=== PATIENT | female | born 1935 | race Caucasian/White ===

== ENCOUNTER → 2024-11-02 09:56 | Outpatient (REF) | payer MEDICARE, SELFPAY | LOC: HWRCS 09:56 | PROVIDERS: ATTENDING PHYSICIAN Internal Medicine Cardiovascular Disease | DX: I34.0 Nonrheumatic mitral (valve) insufficiency (principal); I35.8 Other nonrheumatic aortic valve disorders; I48.0 Paroxysmal atrial fibrillation | CPT/HCPCS: 93306 ==

== ENCOUNTER 2025-01-02 19:08 | Emergency (ER) | payer MEDICARE, SELFPAY ==
[2025-01-02 19:13] VITALS: BP 127/75
--- NOTE | 2025-01-02 19:58 | ED.GENMED ---
History of Present Illness
<Aramis Sanders DO - Last Filed: 01/02/25 20:00>
General
Chief Complaint: Nose Bleed
Source: patient and spouse
Exam Limitations: none
Time Seen by Provider: 01/02/25 19:49
History of Present Illness
History of Present Illness:
89 female A-fib Eliquis 2.5 twice daily, no prior TIA or CVA sneezed at 4 PM sided nosebleed from the left side since then no other systemic bleeding no rash, no prior episode of nosebleed
Past History
<Aramis Sanders DO - Last Filed: 01/02/25 20:00>
Past History
ED Past Medical History: Arrthythmia and Hypercholesterolemia
ED Past Surgical History: None
Social History
Tobacco: Non-smoker
Alcohol: None
Drug: None
Personal:
Living: with family
Employment: Retired
Review of Systems
<Aramis Sanders DO - Last Filed: 01/02/25 20:00>
Review of Systems
All Other Systems: Not applicable
EENT: Reports other (Nosebleed)
Respiratory: Denies hemoptysis
ABD/GI: Denies bloody stools
: Denies bleeding
Phy Exam
<Aramis Sanders DO - Last Filed: 01/02/25 20:00>
Physical Exam
Physical Exam:
Physical Exam
General: no apparent distress, not acutely ill
Neck: Oozing left medial nare
Lungs: no acute respiratory distress.
Neuro: alert and oriented. no focal neurological deficits
Skin: no rash
Psychiatric: well kept. interactive and cooperative
Extremities: no edema
Course
<Aramis Sanders DO - Last Filed: 01/02/25 20:00>
Orders/Labs/Results
Orders:
Orders
01/02/25 19:32
Complete Blood Count/With Diff Urgent
Abnormal Lab Results
01/02/25
19:32
RBC 4.19 L 10^6/uL
(4.20-5.40)
Hct 36.8 L %
(37.0-47.0)
Monocytes % 11.0 H %
(1.7-9.3)
01/02/25 19:32
Vital Signs
Initial and Last Documented VS:
Initial Vital Signs
Temp Pulse Resp BP Pulse Ox
98.8 F 81 18 127/75 98
01/02/25 19:13 01/02/25 19:13 01/02/25 19:13 01/02/25 19:13 01/02/25 19:13
Last Documented Vital Signs
Temp Pulse Resp BP Pulse Ox
98.8 F 78 16 128/74 97
01/02/25 19:13 01/02/25 21:29 01/02/25 21:29 01/02/25 21:29 01/02/25 21:29
<Derek Lawson PA-C - Last Filed: 01/02/25 22:33>
Orders/Labs/Results
Orders:
Orders
01/02/25 19:32
Complete Blood Count/With Diff Urgent
Abnormal Lab Results
01/02/25
19:32
RBC 4.19 L 10^6/uL
(4.20-5.40)
Hct 36.8 L %
(37.0-47.0)
Monocytes % 11.0 H %
(1.7-9.3)
01/02/25 19:32
Vital Signs
Initial and Last Documented VS:
Initial Vital Signs
Temp Pulse Resp BP Pulse Ox
98.8 F 81 18 127/75 98
01/02/25 19:13 01/02/25 19:13 01/02/25 19:13 01/02/25 19:13 01/02/25 19:13
Last Documented Vital Signs
Temp Pulse Resp BP Pulse Ox
98.8 F 78 16 128/74 97
01/02/25 19:13 01/02/25 21:29 01/02/25 21:29 01/02/25 21:29 01/02/25 21:29
Procedures
<Aramis Sanders DO - Last Filed: 01/02/25 20:00>
Nosebleed
Drug treatment: Epinephrine
Treatment: local pressure applied and Silver nitrate cautery
Post treatment bleeding: none- good control
<Aramis Sanders DO - Last Filed: 01/02/25 20:00>
MDM/Problems Addressed
Differential Diagnosis Includes:
Anterior epistaxis posterior epistaxis anticoagulated
MDM/Problems Addressed:
Nosebleed
Chronic conditions affecting care: Arrhythmia
Acute Exacerbation and/or Progression of Chronic Illness: Arrhythmia
<Aramis Sanders DO - Last Filed: 01/02/25 20:00>
*Pulse Oximetry
Patient hypoxic: no
*Critical Care Note
Total Time (30-74mins, 75-104mins- exclusive of procedures): Not Applicable
<Derek Lawson PA-C - Last Filed: 01/02/25 22:33>
Update Note
Update Note:
Received patient care handoff at shift change from Dr. Sanders, patient with anterior epistaxis, Surgifoam dressing placed. On my assessment the patient has began to bleed copiously again, Surgifoam removed and the nasal cavity is irrigated, unable
to ascertain the true source of the bleed. 5.5 cm anterior nasal pack placed with balloon insufflation, epistaxis no longer present. Will refer to ENT as an outpatient. Patient is advised to hold Eliquis for the next 72 hours pending ENT
evaluation
ED Attending Note
<Aramis Sanders, DO - Last Filed: 01/02/25 20:00>
-
Portions of this chart may have been created with voice recognition software.� Occasional wrong word or��sound alike� substitutions may have occurred due to the inherent limitations of voice recognition software.
Discharge Plan
Departure
Patient Disposition: Home (Routine Discharge)
Date of Disposition: 01/02/25
Time of Disposition: 20:19
Patient with high blood pressure during this ER visit?: No
Condition: Good
Discharge Problem:
Bleeding nose
Instructions: Nosebleeds (DC)
Prescriptions:
No Action
prednisone 20 MG tablet
20 mg PO ONCE Qty: 10 0RF
Rx Instructions:
Take 2 tablets every morning with food for 5 days
naproxen 500 MG tablet
500 mg PO BID Qty: 30 0RF
oxycodone-acetaminophen [Percocet] 1 EACH tablet
1 ea PO .Q6HRS Qty: 20 0RF
Referrals:
Segundo Han MD [Active] -
Activity Restrictions/Additional Instructions:
Call ENT for follow up in 1-2 days
Do not take your Eliquis for the next SIX (6) doses
Interventions
Interventions:
*Risk Screen - Suicide Last Done: 01/02/25 19:13
*General Assessment Last Done: 01/02/25 19:13
*Neglect/Abuse Screening Last Done: 01/02/25 19:13
*ED- Fall Risk Assessment Last Done: 01/02/25 21:29
*ED COVID-19 Vaccine History Last Done: 01/02/25 19:13
*Nursing Disposition Last Done: 01/02/25 21:29
ED-EENT Assessment Last Done: 01/02/25 20:20
Discharge Date and Time
Discharge Date/Time: 01/02/25 21:33
Print Language: SYRIAC
[2025-01-02 20:07] LABS: % Basophils 0.4 % (0-2); % Eosinophils 1.2 % (0-6); % Immature Granulocytes 0.2 % (0-0.5); % Lymphocytes 28.7 % (20.5-51.1); % Neutrophils 58.5 % (42.2-75.2); Absolute Eosinophils 0.1 10^3/uL (0-0.7); Absolute Lymphocytes 1.5 10^3/uL (1.2-3.4); Absolute Monocytes 0.6 10^3/uL (0.1-0.6); Hematocrit 36.8 % (37.0-47.0); Hemoglobin 12.3 g/dL (12.0-16.0); Mean Corp Hgb Conc. 33.4 g/dL (33.0-37.0); Mean Corpuscular Hgb 29.4 pg (27.0-31.0); Mean Corpuscular Volume 87.8 fL (81.0-99.0); Mean Platelet Volume 10.2 fL (7.4-10.4); Nucleated Red Blood Cells % 0 %; Platelet Count 178 10^3/uL (130-400); Red Blood Cell Count 4.19 10^6/uL (4.20-5.40); Red Cell Dist. Width 12.8 % (11.5-14.5); White Blood Cell Count 5.1 10^3/uL (4.8-10.8)
[2025-01-02 21:29] VITALS: BP 128/74
== END 2025-01-02 21:33 | disposition home or self-care (01) ==
LOC: EMR 19:08
PROVIDERS: EMERGENCY PHYSICIAN Emergency Medicine; FAMILY PHYSICIAN Family Medicine
DX: R04.0 Epistaxis (principal); E78.00 Pure hypercholesterolemia, unspecified; I48.91 Unspecified atrial fibrillation; Z79.01 Long term (current) use of anticoagulants
CPT/HCPCS: 99283; 30901; 85025